=== PATIENT | male | born 1985 | race Two or more races ===

== ENCOUNTER 2019-06-04 14:59 | Emergency (ER) | payer OTHER ==
[2019-06-04 15:00] VITALS: O2SAT 98
[2019-06-04 17:02] VITALS: BP 116/62; PULSE 98; RESP 12; TEMP 97
== END 2019-06-04 16:50 | disposition home or self-care (01) | DRG 74 ==
LOC: ED 14:59
DX: G62.9 Polyneuropathy, unspecified (principal); R20.0 Anesthesia of skin; M79.672 Pain in left foot; M79.671 Pain in right foot
CPT/HCPCS: 99282